=== PATIENT | male | born 1950 | race Caucasian/White ===

== ENCOUNTER → 2016-09-29 | Outpatient (CLI) | payer OTHER ==
[~2016-09-29] MED LIST: CZR50 PO; LCTX PO; OXYC-57 PO; PANT40TA PO; TYL325X PO
[2016-09-29 09:57] LABS: BASO % 0.2 %; BASO ABS # 0.01 K/uL (0-0.2); COMPLETE YES; EOS % 1.1 %; HEMATOCRIT 41.9 % (42-52); IG% 0.5 %; LYMPH % 22.6 %; LYMPH ABS # 1.27 K/uL (1.2-3.4); MEAN CELL VOLUME 92.9 fL (80-100); MEAN CORPUSCULAR HEMOGLOBIN 33.3 pg (25-34); MEAN CORPUSCULAR HGB CONC 35.8 g/dl (32-36); MEAN PLATELET VOLUME 10.7 fL (7.4-10.4); MONO % 10.3 %; NEUT % 65.3 %; PLATELET COUNT 138 K/uL (130-400); RED BLOOD COUNT 4.51 M/uL (4.7-6.1); WHITE BLOOD COUNT 5.63 K/uL (4.8-10.8)
[2016-09-29 10:23] LABS: ESTIMATED AVERAGE GLUCOSE 120 mg/dl; HA1C FLAG Normal (Normal)
[2016-09-29 10:26] LABS: ALT/SGPT 59 U/L (12-78); AST/SGOT 22 U/L (15-37); BLOOD UREA NITROGEN 27 mg/dl (7-18); BUN/CREATININE RATIO 22.2 (10-20); CALCIUM 8.6 mg/dl (8.5-10.1); CARBON DIOXIDE 27 mmol/L (21-32); CHLORIDE 110 mmol/L (98-107); GLUCOSE 107 mg/dl (70-99); POTASSIUM 4.5 mmol/L (3.5-5.1); SODIUM 144 mmol/L (136-145); TRIGLYCERIDES 62 mg/dl (0-150); VERY LOW DENSITY LIPOPROT CALC 12 mg/dl
[2016-09-29 10:36] LABS: ALB/GLOB RATIO 1.4 (0.9-2); ALKALINE PHOSPHATASE 73 U/L (45-117); CHOLESTEROL 154 mg/dl (0-200); CHOLESTEROL/HDL RATIO 3.7; HDL CHOLESTEROL 42 mg/dl; LDL CHOLESTEROL CALCULATED 100 mg/dl; PROSTATE SPECIFIC ANTIGEN 0.753 ng/ml (0.000-4.000)
[2016-09-29 12:19] LABS: URINE APPEARANCE CLEAR (CLEAR); URINE BILIRUBIN NEG (NEG); URINE COLOR YELLOW; URINE NITRITE NEG (NEG); URINE SPECIFIC GRAVITY 1.022 (1.000-1.030); UROBILINOGEN NEG (NEG)
[2016-09-29 12:36] LABS: MANUAL MICROSCOPIC REQUIRED? NO; REVIEW REQ? NO
== END | disposition home or self-care (01) ==
LOC: C.LAB1850 09:20
PROVIDERS: ATTEND Internal Medicine Pulmonary Disease
DX: I10 Essential (primary) hypertension (principal); R73.9 Hyperglycemia, unspecified; K76.0 Fatty (change of) liver, not elsewhere classified; N41.9 Inflammatory disease of prostate, unspecified; N20.0 Calculus of kidney

== ENCOUNTER → 2016-12-30 | Outpatient (CLI) | payer OTHER ==
--- NOTE | 2016-12-30 11:04 | DIAGNOSTIC IMAGING REPORT ---
KUB CLINICAL HISTORY: 66 years-old Male presenting with nephrolithiasis. TECHNIQUE: Single supine view of the abdomen was obtained. COMPARISON: 03/20/2015. FINDINGS: No calcifications are noted along the expected course of the urinary collecting systems. Multiple phleboliths noted in the pelvis, unchanged. Normal bowel gas pattern. No evidence of free intraperitoneal gas, pneumatosis, or portal venous gas. Osseous structures normal. IMPRESSION: 1. No radiographic evidence of nephrolithiasis. Electronically signed by: Jeremias Napoles 12/30/2016 11:03 AM Dictated Date/Time: 12/30/2016 11:01 AM
== END | disposition home or self-care (01) ==
LOC: C.RAD1850 09:19
PROVIDERS: ATTEND Nurse Practitioner Family
DX: N20.0 Calculus of kidney (principal)

== ENCOUNTER 2017-06-20 18:51 | Emergency (ER) | payer OTHER ==
[~2017-06-20] VITALS: Ht 182.9 cm; Wt 83.2 kg
[2017-06-20 19:02] VITALS: TEMP 37; Ht 182.9 cm; Wt 83.2 kg
--- NOTE | 2017-06-20 20:01 | DIAGNOSTIC IMAGING REPORT ---
L ANKLE MIN 3 VIEWS ROUTINE CLINICAL HISTORY: Possible Achilles tendon rupture COMPARISON: None FINDINGS: Alignment of left ankle is anatomic. Talar dome is intact. There is extensive plantar calcaneal spurring. There is mild posterior calcaneal spurring. There is moderate vascular calcification. No acute fracture is identified. Although suboptimally assessed by radiography, there may be thickening of the Achilles at or just distal to the myotendinous junction with minimal adjacent soft tissue swelling. IMPRESSION: 1. No acute fracture or dislocation of the left ankle. 2. Possible thickening of the Achilles tendon at or just distal to the myotendinous junction. This is suboptimally assessed by radiography but could reflect Achilles tendinopathy/tear. Electronically signed by: Jose Kirkland M.D. 06/20/2017 8:00 PM Dictated Date/Time: 06/20/2017 7:58 PM
[2017-06-20] MEDS ORDERED: NORCO 5/325MG HOME PACK PO ONE (20:15)
[2017-06-20 20:16] VITALS: BP 155/79; PULSE 68; O2SAT 98
--- NOTE | 2017-06-20 21:08 | EMERGENCY ROOM VISIT NOTE ---
ED Visit Note First contact with patient: 18:55 Chief Complaint: Left ankle injury. History of Present Illness: Mr. Mcdonald 's a 67-year-old white male who is brought into the ED via ambulance complaining of posterior ankle pain. Historically patient denies any previous significant injuries or surgeries to the left ankle. Patient reports he was playing racquetball tonight when he felt like someone kicked him in the area of the Achilles tendon. Immediately after this he reports she's had a mild burning sensation in the area and that has been constant. The injury occurred approximately 15-20 minutes prior to arrival at the hospital. Currently he rates his discomfort 0/10 at rest and 3/10 with palpation and plantar flexion. His pain is nonradiating. He has not identified any other aggravating factors or alleviating factors related to his visit. He has not had a medication for pain prior to arrival at the hospital; although he does report he normally takes ibuprofen before playing racquetball. He denies any associated knee pain, foot pain, leg/ankle/foot weakness/numbness/tingling. Review of Systems: As noted above in history of present illness. 5 body systems were reviewed and found to be negative as noted above. Past Medical History: Hypertension, nephrolithiasis, unspecified shoulder dislocation and status post vasectomy. Current Medications: Ibuprofen, Tylenol, Cozaar, Protonix, Floranex. Allergies to Medications: Codeine, sulfa, Tamsulosin. Social History: Patient is currently employed; he feels safe in his home environment; he denies tobacco and alcohol use. Physical Examination: Vital Signs: Date Time Temp Pulse Resp B/P (MAP) Pulse Ox O2 Delivery O2 Flow Rate FiO2 06/20/17 20:16 68 20 155/79 98 Room Air 06/20/17 19:02 37.0 87 20 152/77 98 Room Air GENERAL: 67-year-old male in mild distress due to pain, nontoxic-appearing, afebrile and hemodynamically stable. NEUROLOGICAL: Awake, alert and oriented to person, place and time. Answering questions appropriately and following commands. SKIN: Warm, dry and pink. No soft tissue eruptions or trauma noted. LEFT LOWER EXTREMITY: No gross bony deformity. No shortening or malrotation. No tenderness in the knee or over the proximal gastrocnemius. Mild tenderness over the area where the Achilles tendon should be but no palpable Achilles was found. I do not see any bulging of the gastrocnemius muscle. He has no tenderness over the insertion site of the gastrocnemius. He has full range of motion at the level of the ankle but there is weakness when compared bilaterally. He has full range of motion of flexion and extension of the knees. Throughout the foot the skin was warm and pink and capillary refill was brisk. He was able to distinguish light sensations through all dermatomes. ED Course: Patient is assessed as noted above. Patient's medication list was reviewed. Patient was offered pain medication and refused. Left ankle x-rays: Was read by myself and the radiologist showing no acute fractures or dislocations. Radiologist notes possible thickening of the Achilles tendon at or just distal to the mild tenderness junction; suboptimal assessment but could reflect Achilles tendinopathy or tear. Patient was placed in a posterior knee splint of Ortho-Glass in the 90 position. Patient was placed on nonweightbearing crutches. Patient was educated about today's findings and instructed on his treatment plan ; he verbalizes understanding and agreement with this plan. Clinical Impression: Achilles tendon rupture. Disposition: Patient discharged home in stable condition accompanied by his ; prior to departure he was reassessed and rated his discomfort 3/10. Plan: Comfort measures were discussed with the patient including rest, splint use, crutch use, ice and a sliding pain scale of ibuprofen, acetaminophen or Wirt; appropriate narcotic precautions were discussed with the patient and his name was checked in the state database and no red flags were found. Patient is encouraged to follow-up with his medical administrative specialist tomorrow for definitive care and treatment. Patient is encouraged return ED for worsening/uncontrolled pain, uncontrolled swelling or any new/concerning symptoms.
[2017-06-27] MEDS ORDERED: ASPI81TA28 PO (11:04)
[2017-06-27] MEDS ORDERED: CZR50 PO (11:04)
[2017-06-29] MEDS ORDERED: KETO10TA PO (12:03)
[2017-06-29] MEDS ORDERED: OXYC-57 PO (12:03)
== END 2017-06-20 20:38 | disposition home or self-care (01) ==
LOC: EDBD 18:51 → C.EDD 18:52
DX: S86.012A Strain of left Achilles tendon, initial encounter (principal); X58.XXXA Exposure to other specified factors, initial encounter; Y92.89 Other specified places as the place of occurrence of the external cause; Y93.73 Activity, racquet and hand sports; I10 Essential (primary) hypertension; Z87.442 Personal history of urinary calculi; Z79.899 Other long term (current) drug therapy

== ENCOUNTER → 2017-06-22 | Outpatient (CLI) | payer OTHER ==
[~2017-06-22] MED LIST changes: +ASPI81TA28 PO; +KETO10TA PO
[2017-06-22 12:03] LABS: BASO % 0.2 %; BASO ABS # 0.01 K/uL (0-0.2); COMPLETE YES; HEMATOCRIT 44.5 % (42-52); IG% 0.2 %; LYMPH % 22.6 %; LYMPH ABS # 1.35 K/uL (1.2-3.4); MEAN CELL VOLUME 95.9 fL (80-100); MEAN CORPUSCULAR HEMOGLOBIN 33.8 pg (25-34); MEAN CORPUSCULAR HGB CONC 35.3 g/dl (32-36); MEAN PLATELET VOLUME 10.4 fL (7.4-10.4); MONO % 7.9 %; NEUT % 68.1 %; PLATELET COUNT 133 K/uL (130-400); RED BLOOD COUNT 4.64 M/uL (4.7-6.1); WHITE BLOOD COUNT 5.98 K/uL (4.8-10.8)
[2017-06-22 12:34] LABS: BLOOD UREA NITROGEN 23 mg/dl (7-18); BUN/CREATININE RATIO 17.4 (10-20); CALCIUM 8.9 mg/dl (8.5-10.1); CARBON DIOXIDE 24 mmol/L (21-32); CHLORIDE 104 mmol/L (98-107); CREATININE 1.31 mg/dl (0.60-1.40); GLUCOSE 126 mg/dl (70-99); POTASSIUM 4.2 mmol/L (3.5-5.1); SODIUM 136 mmol/L (136-145)
== END | disposition home or self-care (01) ==
LOC: C.CPL 11:14
PROVIDERS: ATTEND Orthopaedic Surgery
DX: Z01.810 Encounter for preprocedural cardiovascular examination (principal); Z01.812 Encounter for preprocedural laboratory examination; S86.012A Strain of left Achilles tendon, initial encounter; X58.XXXA Exposure to other specified factors, initial encounter

== ENCOUNTER → 2017-06-29 | Day surgery (SDC) | payer OTHER ==
[2017-06-27 11:04] VITALS: Ht 182.9 cm; Wt 83.2 kg
[~2017-06-29] VITALS: Ht 182.9 cm; Wt 83.2 kg
[~2017-06-29] MED LIST changes: +ATROPINE SULFATE 0.1 MG/ML 5ML SYR IV PRN; +BUPIVACAINE 0.25% 30 ML VIAL ONE; +BUPIVACAINE 0.5 % 5 MG/1 ML MPF 30ML VIAL ONE; +CEFAZOLIN 2000MG IV PUSH 10 ML IV SCH; +DEXAMETHASONE SOD INJ 4 MG/ML VIAL ONE; +EpHEDrine SULFATE INJ 50 MG/ML AMP IV PRN; +EpHEDrine SULFATE INJ 50 MG/ML AMP ONE; +FENTANYL CITRATE INJ 50 MCG/1 ML 2 ML VIAL IV PRN; +FENTANYL CITRATE INJ 50 MCG/1 ML 2 ML VIAL ONE; +GLYCOPYRROLATE INJ 0.2 MG/ML VIAL ONE; +KETOROLAC TROMETHAMINE 30 MG/ML VIAL IV. PRN; +LACTATED RINGER'S 1000ML 1,000 ML IV SCH; -LCTX PO; +LIDOCAINE HCL 2% 2 ML VIAL (20MG/ML) ONE; +MIDAZOLAM HCL 1 MG/ML 2ML VIAL ONE; +NEOSTIGMINE METHYLSULFATE 5 MG/5 ML SYR ONE; +ONDANSETRON INJ 2 MG/ML 2 ML VIAL IV PRN; +ONDANSETRON INJ 2 MG/ML 2 ML VIAL ONE; +OXYCODONE/ACETAMINOPHEN 5-325 TAB PO PRN; +PROPOFOL IV EMULSION 10 MG/ML 20 ML VIAL IV ONE; +ROPIVACAINE 0.5% 5 MG/ML 30 ML VIAL ONE; +SODIUM CHLORIDE 0.9% 1000ML 1,000 ML IV SCH; +SODIUM CHLORIDE 0.9% INJ 10 ML VIAL ONE; -TYL325X PO
--- NOTE | 2017-06-29 08:44 | History & Physical Bridge Note ---
H&P Re-Evaluation Bridge Note: I have examined the patient, reviewed the History & Physical and in the interval since the performance of the History & Physical I have noted the following changes of clinical significance: No changes noted
--- NOTE | 2017-06-29 11:35 | [facility] Post Operative Brief Note ---
Immediate Operative Summary Operative Date Jun 29, 2017. Pre-Operative Diagnosis Left Achilles Tendon Rupture Post-Operative Diagnosis Same Procedure(s) Performed Left Achilles Tendon Repair Surgeon Dr. Rosario Sánchez Spinning Room Worker Surgeon(s) Nelia Heller PA-C Estimated Blood Loss 5cc Findings as above Specimens None Complication(s) None Disposition Recovery Room / PACU
--- NOTE | 2017-06-29 12:04 | Discharge Instructions-SurgCtr ---
Discharge Instructions Date of Service Jun 29, 2017. Visit Reason for Visit: Left Achilles Tendon Rupture, Pain Lower Limb Discharge Discharge Diagnosis / Problem: SAME ABOVE Discharge Goals Goal(s): Decrease discomfort, Improve function Activity Recommendations Activity Limitations: as noted below Lifting Limitations: until after follow-up appointment Weightbearing Status: Left non-weightbearing Anesthesia . Post Anesthesia Instructions: If you have had General Anesthesia or IV Sedation: * Do not drive today. * Resume driving when surgeon permits. * Do not make important decisions or sign legal documents today. * Call surgeon for: 1. Temperature elevations greater than 101 degrees F. 2. Uncontrollable pain. 3. Excessive bleeding. 4. Persistent nausea and vomiting. 5. Medication intolerance (nausea, vomiting or rash). * For nausea and vomiting use only clear liquids such as: tea, soda, bouillon until nausea subsides, then gradually increase diet as tolerated. * If you have any concerns or questions, call your surgeon's office. If physician is unavailable and it is an emergency, call 911 or go to the nearest emergency room. . Instructions / Follow-Up Instructions / Follow-Up MEDICATIONS: * Resume previous medications unless instructed otherwise by your surgeon. * Always take pain medication on a full stomach or with food to avoid upset stomach. * Do not drink alcohol or drive while taking narcotics. * Ibuprofen or Tylenol may be taken if narcotic not needed. SPECIAL CARE INSTRUCTIONS: __ None _X_ Keep extremity elevated and iced x 48 hours; apply ice 20-30 minutes 8-10 times/day. May remove at night. _X_ Crutches __ May discard when able __ Brace/Post-op shoe __ 24 hrs/day __ Remove at night _X_ Dressing _X_ Maintain until seen in office, may shower with plastic over site __ Remove dressings in 24-48 hours and then may shower __ Cover incisions with band-aids after showering __ Do not remove steri-strips Call physician if chills or temperature rises above 102 degrees or pain unrelieved by prescribed pain medications. Office [phone] Diet Recommendations Home Diet: no limitations Fluid Restriction: None Procedures Procedures Performed: Left Achilles Tendon Repair Pending Studies Studies pending at discharge: no Work Instructions Return To Work: after follow-up Medical Emergencies . Who to Call and When: Medical Emergencies: If at any time you feel your situation is an emergency, please call 911 immediately. . Non-Emergent Contact Non-Emergency issues call your: Primary Care Provider Call Non-Emergent contact if: you have a fever, temperature is above 101.5 . . "Provider Documentation" section prepared by Renato Heller. .
[2017-06-29 12:58] VITALS: TEMP 36.2
--- NOTE | 2017-06-29 13:26 | Anesthesia Progress Nt - [facility] ---
Anesthesia Post Op Note Date & Time Jun 29, 2017 at 13:26 Vital Signs Pain Intensity: 0 Vital Signs Past 12 Hours Date Time Temp Pulse Resp B/P (MAP) Pulse Ox O2 Delivery O2 Flow Rate FiO2 06/29/17 12:58 36.2 76 18 154/87 (109) 99 Room Air 06/29/17 12:53 79 16 06/29/17 12:53 77 16 96 06/29/17 12:51 36.4 75 14 142/85 97 Room Air 06/29/17 12:50 142/85 06/29/17 12:48 78 17 06/29/17 12:48 78 17 97 06/29/17 12:46 136/85 06/29/17 12:43 82 16 97 06/29/17 12:43 80 16 06/29/17 12:40 139/81 06/29/17 12:38 86 17 06/29/17 12:38 87 17 100 06/29/17 12:35 141/78 06/29/17 12:33 79 10 06/29/17 12:33 79 10 100 06/29/17 12:30 138/83 06/29/17 12:28 81 16 06/29/17 12:28 81 16 100 06/29/17 12:25 136/82 06/29/17 12:23 84 11 06/29/17 12:23 84 11 100 06/29/17 12:20 138/80 06/29/17 12:18 84 16 100 06/29/17 12:18 84 16 06/29/17 12:16 145/81 06/29/17 12:13 71 12 06/29/17 12:13 72 12 100 06/29/17 12:11 152/93 06/29/17 12:09 152/84 06/29/17 12:08 36.7 84 20 152/84 99 Mask 6 06/29/17 12:08 81 06/29/17 12:08 81 99 06/29/17 10:42 82 15 100 06/29/17 10:42 82 06/29/17 10:40 129/71 06/29/17 10:37 73 10 100 06/29/17 10:37 73 06/29/17 10:36 110/68 06/29/17 10:32 71 9 99 06/29/17 10:32 70 06/29/17 10:31 113/61 06/29/17 10:27 70 06/29/17 10:27 71 15 100 06/29/17 10:25 120/60 06/29/17 10:22 72 12 99 06/29/17 10:22 72 06/29/17 10:20 116/65 06/29/17 10:17 77 06/29/17 10:17 78 17 100 06/29/17 10:16 76 14 100 06/29/17 10:16 76 06/29/17 10:15 126/67 06/29/17 10:11 86 06/29/17 10:11 84 21 100 06/29/17 10:06 75 06/29/17 10:06 68 13 122/61 99 06/29/17 10:01 81 06/29/17 10:01 82 16 129/59 100 06/29/17 09:56 86 06/29/17 09:56 86 15 146/67 100 06/29/17 09:51 84 22 164/91 06/29/17 09:15 88 156/85 (108) 06/29/17 09:05 36.3 105 16 179/111 (133) 97 Room Air Notes Mental Status: alert / awake / arousable, participated in evaluation Pt Amnestic to Procedure: Yes Nausea / Vomiting: adequately controlled Pain: adequately controlled Airway Patency, RR, SpO2: stable & adequate BP & HR: stable & adequate Hydration State: stable & adequate Anesthetic Complications: no major complications apparent
[2017-06-29 13:39] VITALS: BP 151/80; PULSE 75; O2SAT 98
--- NOTE | 2017-06-29 16:42 | OPERATIVE REPORT ---
DATE OF OPERATION: 06/29/2017 PREOPERATIVE DIAGNOSIS: Acute left Achilles tendon rupture. POSTOPERATIVE DIAGNOSIS: Same. PROCEDURE: Open left Achilles tendon repair. SURGEON: Dr. Kamran Sánchez. COST ACCOUNTING CLERK: Doroteo Heller PA-C, whose assistance was necessary for retraction and positioning, closure. ANESTHESIA: General with a left popliteal block. COMPLICATIONS: None. CONDITION: Stable to PACU. INDICATIONS: Ronni is a pleasant 67-year-old male who was playing [employer] last week when he popped his left Achilles tendon. He came to my office and the rupture was obvious on physical examination. He elected to undergo repair. OPERATION AND FINDINGS: On 06/29/2017, he arrived at [facility] for the above procedure. He was seen in the preoperative holding area and the operative extremity was identified and signed. He was given a preoperative antibiotic and a left popliteal block. He was taken back to the operating room, laid on the table in supine position and put under general anesthesia. He was then put into the prone position. The left Achilles was then prepped and draped in sterile fashion. Time-out was done and the patient and operative extremity was properly identified. A longitudinal incision was made just medial to the Achilles tendon. Dissection was taken down to the paratenon. The peritenon was partially released. The Achilles did rupture at the watershed region. A #5 FiberWire suture was passed proximally from the distal portion of the proximal tear with an interlocking [place] fashion. It was then brought distally. An additional #5 FiberWire suture was used to whipstitch the distal portion of the tendon in a locking [place] fashion. The tails of the suture were then tied together bringing the Achilles together nicely. I was very happy with the repair. The remaining loose tendon ends were brought together with a 0 PDS suture. This kind of brought everything together nicely. The peritenon was partially repaired as well as it could be. The knee was then flexed and the ankle was able to dorsiflex to about neutral before the Achilles was very tight. The wound was then irrigated and closed with 2-0 Vicryl and 3-0 nylon in a mattress fashion. He was then placed in a posterior splint, extubated, transferred to a [facility] and taken to the postanesthesia care unit in stable condition. He tolerated the procedure well. I attest to the content of the Intraoperative Record and any orders documented therein. Any exception s are noted below.
== END | disposition home or self-care (01) ==
LOC: X.SURG 08:50
PROVIDERS: ATTEND Orthopaedic Surgery
DX: S86.012A Strain of left Achilles tendon, initial encounter (principal); X58.XXXA Exposure to other specified factors, initial encounter; Y93.73 Activity, racquet and hand sports; Y92.838 Other recreation area as the place of occurrence of the external cause; Y99.8 Other external cause status; I10 Essential (primary) hypertension; K21.9 Gastro-esophageal reflux disease without esophagitis; G47.33 Obstructive sleep apnea (adult) (pediatric); Z87.442 Personal history of urinary calculi; Z79.82 Long term (current) use of aspirin

== ENCOUNTER → 2017-09-18 | Outpatient (CLI) | payer OTHER ==
[~2017-09-18] MED LIST changes: -ATROPINE SULFATE 0.1 MG/ML 5ML SYR IV PRN; -BUPIVACAINE 0.25% 30 ML VIAL ONE; -BUPIVACAINE 0.5 % 5 MG/1 ML MPF 30ML VIAL ONE; -CEFAZOLIN 2000MG IV PUSH 10 ML IV SCH; -DEXAMETHASONE SOD INJ 4 MG/ML VIAL ONE; -EpHEDrine SULFATE INJ 50 MG/ML AMP IV PRN; -EpHEDrine SULFATE INJ 50 MG/ML AMP ONE; -FENTANYL CITRATE INJ 50 MCG/1 ML 2 ML VIAL IV PRN; -FENTANYL CITRATE INJ 50 MCG/1 ML 2 ML VIAL ONE; -GLYCOPYRROLATE INJ 0.2 MG/ML VIAL ONE; -KETOROLAC TROMETHAMINE 30 MG/ML VIAL IV. PRN; -LACTATED RINGER'S 1000ML 1,000 ML IV SCH; -LIDOCAINE HCL 2% 2 ML VIAL (20MG/ML) ONE; -MIDAZOLAM HCL 1 MG/ML 2ML VIAL ONE; -NEOSTIGMINE METHYLSULFATE 5 MG/5 ML SYR ONE; -ONDANSETRON INJ 2 MG/ML 2 ML VIAL IV PRN; -ONDANSETRON INJ 2 MG/ML 2 ML VIAL ONE; -OXYCODONE/ACETAMINOPHEN 5-325 TAB PO PRN; -PROPOFOL IV EMULSION 10 MG/ML 20 ML VIAL IV ONE; -ROPIVACAINE 0.5% 5 MG/ML 30 ML VIAL ONE; -SODIUM CHLORIDE 0.9% 1000ML 1,000 ML IV SCH; -SODIUM CHLORIDE 0.9% INJ 10 ML VIAL ONE
[2017-09-18 10:03] LABS: HEMOGLOBIN A1C 5.7 % (4.5-5.6)
[2017-09-18 10:05] LABS: ALBUMIN 3.7 gm/dl (3.4-5.0); ALT/SGPT 75 U/L (12-78); AST/SGOT 23 U/L (15-37); BLOOD UREA NITROGEN 20 mg/dl (7-18); CALCIUM 8.6 mg/dl (8.5-10.1); CARBON DIOXIDE 24 mmol/L (21-32); CREATININE 1.14 mg/dl (0.60-1.40); GLUCOSE 107 mg/dl (70-99); POTASSIUM 4.3 mmol/L (3.5-5.1); SODIUM 140 mmol/L (136-145)
[2017-09-18 10:10] LABS: ALKALINE PHOSPHATASE 92 U/L (45-117); CHOLESTEROL 151 mg/dl (0-200); LDL CHOLESTEROL CALCULATED 96 mg/dl; TOTAL PROTEIN 6.6 gm/dl (6.4-8.2)
== END | disposition home or self-care (01) ==
LOC: C.LAB1850 08:16
PROVIDERS: ATTEND Internal Medicine Pulmonary Disease
DX: Z00.00 Encounter for general adult medical examination without abnormal findings (principal); K21.9 Gastro-esophageal reflux disease without esophagitis; R73.9 Hyperglycemia, unspecified; I10 Essential (primary) hypertension; Z12.5 Encounter for screening for malignant neoplasm of prostate

== ENCOUNTER 2019-01-07 06:52 | Observation (INO) ==
--- NOTE | 2019-01-07 07:43 | Pre Anesthesia Assessment ---
Date of Service January 07, 2019 Pre Sedation Assessment Cardiovascular RRR, no murmur, no edema Respiratory normal respiratory effort, lungs clear to auscultation Pre-Sedation Airway Assessment Smoking Status: Never smoker Hx Sleep Apnea: No Hx Difficult Intubation: No Short, Thick Neck: No Thyromental Distance: > or= 3.5 Finger Breadths Oral Cavity: + WNL Mallampati Class: III Procedure Planning Contraindications for Sedation: none Current Medications Reviewed: Yes Notes The planned sedation has been discussed with the patient. Informed Consent was obtained. I have identified the patient, determined the appropriateness of sedation and have assessed the patient immediately prior to the procedure. All medicine(s) and interventions are by my order.
--- NOTE | 2019-01-07 07:43 | History & Physical Bridge Note ---
Date of Service January 07, 2019 History & Physical Bridge Note I have examined the patient, reviewed the History & Physical and in the interval since the performance of the History & Physical I have noted the following changes of clinical significance: no changes noted
[2019-01-07] MEDS ORDERED: LIDOCAINE HCL 1% 20 ML VIAL ONE (07:48)
[2019-01-07] MEDS ORDERED: fentaNYL citrate 100 MCG/2 ML VIAL ONE (08:03)
[2019-01-07] MEDS ORDERED: NiCARDipine HCL INJ 2.5 MG/ML 10 ML AMP ONE (08:03)
[2019-01-07] MEDS ORDERED: MIDAZOLAM HCL 1 MG/ML 2ML VIAL ONE ×2 (08:03→09:02)
[2019-01-07] MEDS ORDERED: HEPARIN (PORCINE) 1000 UNIT/ML 10 ML (CATH LAB USE ONLY) ONE ×2 (08:03→09:03)
[2019-01-07] MEDS ORDERED: NITROGLYCERIN/D5W 100MCG/ML 20ML SYR ONE (08:05)
[2019-01-07] MEDS ORDERED: CLOPIDOGREL BISULFATE 300 MG TAB ONE (10:25)
--- NOTE | 2019-01-07 10:37 | Post Anesthesia Assessment ---
Date of Service January 07, 2019 Post Sedation Assessment Vital Signs Temp Pulse Resp BP Pulse Ox 01/07/19 07:46 36.6 C 78 80 H 178/94 H 97 Recovery Score Activity: Moves 4 extremities Respiration: Deep Breath/Cough Circulation: +/-20% PreAnes Value Consciousness: Fully Awake Oxygen Saturation: O2 needed for >90% Discharge Sedation Level of Care: Fast Track Phase II Post Sedation Plan On clinical assessment, the patient appears to have tolerated the sedation without complications. Patient is recovering as anticipated. Patient will continue to be monitored by nursing and may be discharged when sedation discharge criteria are met per below protocol. Upon Completions of procedure and additional 15 minutes continue every 5 minute vital signs and the P.A.R. score; then discharge to a Phase I or Fast Track to Phase II per the following guidelines: * Discharge Patient to appropriate Phase II area if PAR is 8 or greater or return to pre- procedure baseline. The post - procedure orders will be as directed. * If PAR score is less than 8 or not return to pre-procedure baseline then patient will follow Phase I monitoring till PAR is reached for Phase II. The Phase I may be done in procedure room or may call to secure a Phase I area. * If naloxone or flumazenil are used for reversal, hold in Phase I for continued monitoring from when last reversal dose was given for a minimum of 60 minutes or longer pending the nurse and/or physician discretion of patient condition before discharge to Phase II. Please call the Sedation Physician to re-evaluate and complete post-note for discharge to Phase II area. Do NOT discharge from procedure sedation or Phase 1 until post- sedation evaluation note is complete by procedure /sedation MD Sedation Discharge Instructions to be given to the patient at discharge to home.
[2019-01-07] MEDS ORDERED: ONDANSETRON INJ 2 MG/ML 2 ML VIAL IV PRN (10:53)
[2019-01-07] MEDS ORDERED: ACETAMINOPHEN 325 MG TAB PO PRN (10:53)
--- NOTE | 2019-01-07 10:53 | Cardiac Catheterization ---
Cardiac Cath Procedure Full Procedure Date January 07, 2019 Pre-Procedure Diagnosis Pre-Procedure Diagnosis: Positive Stress Test AUC Score AUC Score: 8 Post-Procedure Diagnosis Post-Procedure Diagnosis: Severe CAD, Successful PCI and Normal Intracardiac Pressures Procedure(s) Performed Procedure(s) Performed: Coronary Angiography, Left Heart Cath, Drug Eluting Stent and IVUS Spindle Setter Swapnil Lin MD Plate Grainer(s) grupo Estimated Blood Loss Estimated Blood Loss: 10 Medication(s) Medication(s): Clopidogrel, Fentanyl, Heparin, Lidocaine 1%, Nicardipine, Nitroglycerin and Versed Summary of Findings Indication: Exertional angina, positive stress test for LAD distribution ischemia Access: 6 Fr right radial artery Catheters: [place], EBU 3.75 guide, telescope guideliner Findings: LM -Short, luminal irregularities LAD -moderate caliber vessel, 99% subtotal occlusion at takeoff of small first diagonal, competitive flow in mid segment and second diagonal. Mild to moderate diffuse mid segment disease. Apical LAD wraps around apex. Circumflex -dominant, large caliber vessel, large second OM with diffuse 40% disease. 20% ostial left PLB, 20% proximal left PDA RCA -nondominant, gives off large, dilated acute marginal which gives off epicardial collaterals to apical LAD which retrofills back to proximal LAD where competitive flow LVEDP -1 -- PCI -- Antithrombotic therapy: Heparin, clopidogrel Procedure: Left main cannulated with EBU 3.75 guide Whisper wire passed across LAD lesion into distal vessel, distal intravascular position confirmed via injection through OTW balloon Long whisper wire placed into first diagonal, intravascular position confirmed via injection through OTW balloon. Found to have collaterals to RCA LAD lesion predilated with 2.0 and 2.5 compliant balloons Ostial/proximal first diagonal lesion predilated with 1.5 compliant balloon IVUS used to assess LAD size, extent of disease and calcification. Moderately calcified, with severe disease extending past diagonal into mid segment. Dilated lesion stented with 2.75 x 28 mm Xience Kerry drug-eluting stent Stent post-dilated with 3.0 noncompliant balloon IC vasodilators administered for spasm Post procedure JOSE 3 flow, stent well expanded with minimal residual stenosis and no apparent cardiac complications. Arterial Closure: TR band Summary: 1. Severe single vessel coronary artery disease -99% subtotal occlusion of proximal LAD/small first diagonal. Distal LAD filling via right to left and left to left collaterals 2. Normal intracardiac filling pressure 3. Successful PCI of proximal to mid LAD with single drug-eluting stent (2.75 x 28 mm Xience Kerry; postdilated with 3.0 NC). 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 Continue dual-antiplatelet therapy for at least 6 months, likely extended Continue statin, and ASCVD risk factor modification Consult cardiac Rehab Hemodynamics Rest Ao:: 98/39/62 Final Ao: 108/53/75 LV: 152/1 Recommendations Recommendations: PCI without planned CABG Specimens Specimens: None Radiation Exposure (mGy) 5029 Contrast (mls) 240 Fluids (cc crystalloids) Fluids (cc crystalloids): 230 Drains Drains: none Anesthesia moderate Procedural Complication(s) None Disposition PCU ACC Data: Manager Policy Cardiac Status Clinical evaluation leading to the procedure CAD Presenation: Positive Stress Test Anginal Classification: CCS III Heart Failure: No Cardiogenic Shock within 24 Hours: No Cardiac Arrest within 24 Hours: No Imaging Studies Past 6 Months: Yes Stress Studies Past 6 Months: Yes Stress Echocardiogram: Yes - Positive and Risk/Extent of Ischemia (High) Diagnostic Physicians Name: Swanpil Lin MD Status: Elective Closure Device Percutaneous Entry Location: Radial Closure Device: Radial Band Recommendations: PCI without planned CABG PCI Indication: + Stress Test Lesion Segment Name: proximal LAD Culprit Artery: Yes Stenosis Prior to Rx (%): 99 Chronic Total Occlusion: Yes IVUS: Yes FFR: No Pre-Procedure JOSE Flow: 1 Lesion Complexity: High/C Lesion Length (mm): 23 Thrombus Present: No Bifurcation Lesion: Yes Guidewire Across Lesion: Stenosis Post-Procedure (%): 0 Post-Procedure JOSE Flow: 3 Devices(s) Deployed: Yes Yes Intraprocedure Events Significant Disection: No Perforation: No
[2019-01-07] MEDS ORDERED: PANTOprazole 40 MG TAB PO PRN (10:56)
[2019-01-07] MEDS ORDERED: SODIUM CHLORIDE 0.9% 1000ML 1,000 ML IV SCH (11:00)
[2019-01-07] MEDS: METOPROLOL TARTRATE 25 MG TAB PO SCH (20:53)
[2019-01-07] MEDS ORDERED: LOSARTAN POTASSIUM 50 MG TAB PO SCH (21:00)
[2019-01-08 06:22] LABS: Basophils # (auto) 0.01 K/uL (0-0.2); Basophils % (auto) 0.2 %; Eosinophils # (auto) 0.03 K/uL (0-0.5); Eosinophils % (auto) 0.5 %; Hematocrit (blood only) 42.1 % (42-52); Hemoglobin 15.1 g/dL (14.0-18.0); Immature Granulocytes # (auto) 0.01 K/uL (0.00-0.02); Immature Granulocytes % (auto) 0.2 %; Lymphocytes % (auto) 20.5 %; Mean Corpuscular Hgb Conc 35.9 g/dL (32-36); Mean Corpuscular Volume 93.8 fL (80-100); Mean Platelet Volume 10.4 fL (7.4-10.4); Monocytes # (auto) 0.72 K/uL (0.11-0.59); Monocytes % (auto) 11.4 %; Neutrophils # (auto) 4.27 K/uL (1.4-6.5); Neutrophils % (auto) 67.2 %; Platelet Count 115 K/uL (130-400); RDW Coefficient of Variation 12.8 % (11.5-14.5); RDW Standard Deviation 43.5 fL (36.4-46.3); Red Blood Count 4.49 M/uL (4.7-6.1); White Blood Count 6.34 K/uL (4.8-10.8)
[2019-01-08] MEDS ORDERED: CLOPIDOGREL BISULFATE 75 MG TAB PO SCH (09:00)
[2019-01-08] MEDS ORDERED: ATORVASTATIN 40 MG TAB PO SCH (09:00)
[2019-01-08] MEDS ORDERED: ASPIRIN 81 MG ECTAB PO SCH (09:00)
[2019-01-08] MEDS: METOPROLOL TARTRATE 25 MG TAB PO SCH (09:01)
--- NOTE | 2019-01-08 23:26 | Discharge Summary ---
Date of Service January 08, 2019 Admission HPI Per Admitting Provider Mr. Mcdonald is a very pleasant 68-year-old man with a history of hypertension, GERD/esophageal spasm, family history of premature coronary artery disease who was seen in clinic in the setting of an aortic murmur and approximately 8 years of progressive intermittent burning chest discomfort which was previously attributed to GI symptoms. Recently underwent exercise stress echocardiogram which showed LAD distribution ischemia. Presented today for cardiac catheterization. Specialty Data Cardiology Cardiac catheterization/PCI 1. Severe single vessel coronary artery disease -99% subtotal occlusion of proximal LAD/small first diagonal. Distal LAD filling via right to left and left to left collaterals 2. Normal intracardiac filling pressure 3. Successful PCI of proximal to mid LAD with single drug-eluting stent (2.75 x 28 mm Xience Kerry; postdilated with 3.0 NC). POBA of ostium of first diagonal Discharge Data Consultations 01/08/19 04:44 Consult Cardiac Rehabilitation [facility] Procedures Performed Operation Date: 01/07/19 08:00 Actual Procedures p Drug Eluting Stent SGl Vessel - Chadd Lin MD s IVUS Coronary Single Vessel - Chadd Lin MD s Cineradiography w/Routine Exam - Chadd Lin MD s Cath, Left with Cors and Vent(Not Applicable) - Chadd Lin MD s POBA SGL Vessel - Chadd Lin MD Hospital Course (1) CAD (coronary artery disease): Patient underwent cardiac catheterization via right radial artery. He was found to have a subtotally occluded proximal LAD filling via right to left and left to left collaterals. He underwent PCI to LAD with a single drug-eluting stent along with balloon angioplasty to a small first diagonal. Procedure was uncomplicated. Post procedure he was admitted to telemetry service for observation. He had no recurrent chest pain. No arrhythmia on monitor. Post procedure lab studies unremarkable except for mild thrombocytopenia. To have repeat CBC in 3 days. On day of discharge was feeling well up walking halls. He had some ecchymosis more proximal to his right radial artery access site but intact distal pulse and sensation. Patient was discharged home on DAPT with aspirin, clopidogrel. Also started on Toprol-XL in the setting of hypertensive stress echo response and L VH. High intensity statin also initiated. Follow-up with cardiology in 2 weeks. Discharge Instructions Home Medications Pantoprazole (Protonix) 40 mg PO DAILY PRN #0 08/12/13 [History] ASPIRIN (ASPIRIN EC) 81 mg PO QPM #0 06/27/17 [History] Losartan Potassium 50 mg PO QPM #0 06/27/17 [History] atorvastatin 40 mg PO QAM 30 Days #30 tab 01/08/19 [Rx] clopidogrel 75 mg PO QAM 30 Days #30 tab 01/08/19 [Rx] metoprolol succinate 50 mg PO DAILY #30 tab 01/08/19 [Rx]
== END 2019-01-08 09:31 | disposition home or self-care (01) ==
LOC: CC 06:52 → 2S 06:52